=== PATIENT | male | born 1975 | race Two or more races ===

== ENCOUNTER 2017-12-15 09:57 | Outpatient (CLI) | payer OTHER ==
[2017-12-15 10:29] LABS: BASOPHILS # (AUTO) 0.3 K/uL (0.00-0.22); BASOPHILS % (AUTO) 4.4 % (0.0-2.0); EOSINOPHILS # (AUTO) 0.2 K/uL (0-0.4); EOSINOPHILS % (AUTO) 2.5 % (0.0-4.0); HEMATOCRIT 46.1 % (36-52); HEMOGLOBIN 15.4 g/dL (12.0-18.0); LYMPHOCYTES # (AUTO) 2.7 K/uL (2.0-11.5); LYMPHOCYTES % (AUTO) 38.4 % (20.5-51.1); MEAN CORPUSCULAR HEMOGLOBIN 28 pg (27-31); MEAN CORPUSCULAR HGB CONC 33 g/dL (33-37); MEAN CORPUSCULAR VOLUME 84 fL (80-94); MONOCYTES # (AUTO) 0.5 K/uL (0.8-1.0); MONOCYTES % (AUTO) 7.6 % (1.7-9.3); NEUTROPHILS # (AUTO) 3.4 K/uL (1.8-7.7); NEUTROPHILS % (AUTO) 47.1 % (42.2-75.2); PLATELET COUNT (AUTO) 340 K/uL (140-450); RED BLOOD CELL COUNT(AUTO) 5.49 MIL/uL (4.20-6.10); RED CELL DISTRIBUTION WIDTH 11.8 % (11.6-13.7); WHITE BLOOD COUNT (AUTO) 7.1 K/uL (4.8-10.8)
[2017-12-15 11:11] LABS: ALBUMIN 3.8 g/dL (3.4-5.0); ANION GAP 12.1 (8-16); CARBON DIOXIDE 29.3 mmol/L (21-32); POTASSIUM 4.4 mmol/L (3.5-5.1); THYROID STIMULATING HORMONE 1.31 uIU/mL (0.34-3.74); TOTAL BILIRUBIN 0.6 mg/dL (0.0-1.0)
== END 2017-12-15 20:34 | disposition home or self-care (01) ==
LOC: MLB 09:57
DX: Z00.01 Encounter for general adult medical examination with abnormal findings (principal); R53.83 Other fatigue
CPT/HCPCS: 36415; 80053; 83036; 84402; 84403; 84443; 85025

== ENCOUNTER 2018-05-02 09:13 | Outpatient (CLI) | payer OTHER ==
[2018-05-02 10:06] LABS: ANION GAP 10.8 (8-16); CARBON DIOXIDE 29.5 mmol/L (21-32); POTASSIUM 4.3 mmol/L (3.5-5.1)
[2018-05-03 15:07] LABS: MICROALBUMIN, UR RANDOM <3.0 ug/mL (Not Estab.)
== END 2018-05-02 21:05 | disposition home or self-care (01) ==
LOC: MLB 09:13
DX: E11.9 Type 2 diabetes mellitus without complications (principal)
CPT/HCPCS: 36415; 80048; 82043; 83036

== ENCOUNTER 2018-12-13 10:31 | Outpatient (CLI) | payer OTHER ==
[2018-12-13 10:48] LABS: BASOPHILS % (AUTO) 0.4 % (0.0-2.0); EOSINOPHILS # (AUTO) 0.1 K/uL (0-0.4); EOSINOPHILS % (AUTO) 1.5 % (0.0-4.0); HEMATOCRIT 45.1 % (36-52); HEMOGLOBIN 15.1 g/dL (12.0-18.0); LYMPHOCYTES # (AUTO) 3.1 K/uL (2.0-11.5); LYMPHOCYTES % (AUTO) 41.2 % (20.5-51.1); MEAN CORPUSCULAR HEMOGLOBIN 28 pg (27-31); MEAN CORPUSCULAR HGB CONC 34 g/dL (33-37); MEAN CORPUSCULAR VOLUME 83.5 fL (80-94); MONOCYTES # (AUTO) 0.5 K/uL (0.8-1.0); MONOCYTES % (AUTO) 6.9 % (1.7-9.3); NEUTROPHILS # (AUTO) 3.7 K/uL (1.8-7.7); PLATELET COUNT (AUTO) 313 K/uL (140-450); WHITE BLOOD COUNT (AUTO) 7.4 K/uL (4.8-10.8)
[2018-12-13 10:55] LABS: CARBON DIOXIDE 30.4 mmol/L (21-32); POTASSIUM 4.4 mmol/L (3.5-5.1)
[2018-12-13 11:09] LABS: ALBUMIN 3.8 g/dL (3.4-5.0); CHOL/HDL RATIO 3.9 (1-4.5); THYROID STIMULATING HORMONE 1.27 uIU/mL (0.34-3.74)
[2018-12-14 09:06] LABS: MICROALBUMIN, UR RANDOM <3.0 ug/mL (Not Estab.)
== END 2018-12-13 21:29 | disposition home or self-care (01) ==
LOC: MLB 10:31
DX: Z00.00 Encounter for general adult medical examination without abnormal findings (principal); E78.5 Hyperlipidemia, unspecified; E11.9 Type 2 diabetes mellitus without complications; M62.81 Muscle weakness (generalized)
CPT/HCPCS: 36415; 80053; 82043; 83036; 84402; 84403; 84443; 85025

== ENCOUNTER 2019-05-23 09:37 | Outpatient (CLI) | payer OTHER ==
[2019-05-23 11:03] LABS: BASOPHILS % (AUTO) 0.4 % (0.0-2.0); EOSINOPHILS # (AUTO) 0.1 K/uL (0-0.4); EOSINOPHILS % (AUTO) 1.8 % (0.0-4.0); HEMATOCRIT 45.2 % (36-52); HEMOGLOBIN 15.5 g/dL (12.0-18.0); LYMPHOCYTES # (AUTO) 3.1 K/uL (2.0-11.5); LYMPHOCYTES % (AUTO) 38.8 % (20.5-51.1); MEAN CORPUSCULAR HEMOGLOBIN 29 pg (27-31); MEAN CORPUSCULAR HGB CONC 34 g/dL (33-37); MEAN CORPUSCULAR VOLUME 84.1 fL (80-94); MONOCYTES # (AUTO) 0.6 K/uL (0.8-1.0); MONOCYTES % (AUTO) 7.7 % (1.7-9.3); NEUTROPHILS # (AUTO) 4.2 K/uL (1.8-7.7); NEUTROPHILS % (AUTO) 51.3 % (42.2-75.2); PLATELET COUNT (AUTO) 336 K/uL (140-450); RED BLOOD CELL COUNT(AUTO) 5.38 MIL/uL (4.20-6.10); RED CELL DISTRIBUTION WIDTH 13.5 % (11.6-13.7); WHITE BLOOD COUNT (AUTO) 8.1 K/uL (4.8-10.8)
[2019-05-23 11:14] LABS: APPEARANCE,URINE CLEAR (CLEAR); BILIRUBIN,URINE NEGATIVE (NEGATIVE); BLOOD, URINE TRACE-I (NEGATIVE); COLOR,URINE YELLOW (YELLOW); LEUKOCYTE ESTERASE ,URINE TRACE (NEGATIVE); NITRITE, URINE NEGATIVE (NEGATIVE); UGLUCOSE 3+ (NEGATIVE)
[2019-05-23 11:35] LABS: RBC,URINE 0-5 /HPF (0-5)
[2019-05-23 12:00] LABS: ALBUMIN 4.1 g/dL (3.4-5.0); ANION GAP 14.7 (8-16); CARBON DIOXIDE 26.4 mmol/L (21-32); CHOL/HDL RATIO 3.7 (1-4.5); CREATININE 0.9 mg/dL (0.7-1.3); POTASSIUM 4.1 mmol/L (3.5-5.1); THYROID STIMULATING HORMONE 1.39 uIU/mL (0.34-3.74); TOTAL BILIRUBIN 1.2 mg/dL (0.0-1.0)
[2019-05-24 09:11] LABS: MICROALBUMIN, UR RANDOM <3.0 ug/mL (Not Estab.); T4 FREE (DIRECT) 1.12 ng/dL (0.82-1.77)
== END 2019-05-23 22:20 | disposition home or self-care (01) ==
LOC: MLB 09:37
DX: E11.9 Type 2 diabetes mellitus without complications (principal)
CPT/HCPCS: 36415; 80053; 81001; 82043; 83036; 84402; 84403; 84439; 84443; 85025; 87086

== ENCOUNTER 2019-09-14 08:41 | Outpatient (CLI) | payer OTHER ==
[2019-09-14 09:14] LABS: BASOPHILS % (AUTO) 0.3 % (0.0-2.0); EOSINOPHILS # (AUTO) 0.1 K/uL (0-0.4); EOSINOPHILS % (AUTO) 1.6 % (0.0-4.0); HEMOGLOBIN 14.5 g/dL (12.0-18.0); LYMPHOCYTES # (AUTO) 2.9 K/uL (2.0-11.5); LYMPHOCYTES % (AUTO) 37.8 % (20.5-51.1); MEAN CORPUSCULAR HEMOGLOBIN 29 pg (27-31); MEAN CORPUSCULAR HGB CONC 34 g/dL (33-37); MEAN CORPUSCULAR VOLUME 85.7 fL (80-94); MONOCYTES # (AUTO) 0.5 K/uL (0.8-1.0); MONOCYTES % (AUTO) 6.1 % (1.7-9.3); NEUTROPHILS # (AUTO) 4.2 K/uL (1.8-7.7); NEUTROPHILS % (AUTO) 54.2 % (42.2-75.2); PLATELET COUNT (AUTO) 342 K/uL (140-450); RED BLOOD CELL COUNT(AUTO) 5.02 MIL/uL (4.20-6.10); RED CELL DISTRIBUTION WIDTH 13.1 % (11.6-13.7); WHITE BLOOD COUNT (AUTO) 7.8 K/uL (4.8-10.8)
[2019-09-14 09:36] LABS: ALBUMIN 3.7 g/dL (3.4-5.0); ANION GAP 11.9 (8-16); CARBON DIOXIDE 28.3 mmol/L (21-32); CHOL/HDL RATIO 3.3 (1-4.5); CREATININE 0.8 mg/dL (0.7-1.3); POTASSIUM 4.2 mmol/L (3.5-5.1); THYROID STIMULATING HORMONE 1.23 uIU/mL (0.34-3.74)
== END 2019-09-14 20:21 | disposition home or self-care (01) ==
LOC: MLB 08:41
DX: E11.9 Type 2 diabetes mellitus without complications (principal); I10 Essential (primary) hypertension; E78.5 Hyperlipidemia, unspecified
CPT/HCPCS: 36415; 80053; 83036; 84403; 84443; 85025

== ENCOUNTER 2020-03-29 15:02 | Outpatient (CLI) | payer OTHER, SELFPAY | END 2020-03-29 21:28 | disposition home or self-care (01) | LOC: MLB 15:02 | DX: R53.83 Other fatigue (principal); R50.9 Fever, unspecified; R53.1 Weakness | CPT/HCPCS: 36415 ==

== ENCOUNTER 2020-07-21 08:38 | Outpatient (CLI) | payer OTHER ==
[2020-07-21 11:51] LABS: ALBUMIN 3.8 g/dL (3.4-5.0); ANION GAP 11.8 (8-16); CARBON DIOXIDE 27.4 mmol/L (21-32); CHOL/HDL RATIO 4.3 (1-4.5); CREATININE 0.8 mg/dL (0.6-1.3); FREE T4 (FREE THYROXINE) 0.84 ng/dL (0.76-1.46); POTASSIUM 4.2 mmol/L (3.5-5.1); THYROID STIMULATING HORMONE 1.39 uIU/mL (0.34-3.74); TOTAL BILIRUBIN 0.6 mg/dL (0.0-1.0)
== END 2020-07-21 22:29 | disposition home or self-care (01) ==
LOC: MLB 08:38
DX: R53.83 Other fatigue (principal); E78.2 Mixed hyperlipidemia; E11.9 Type 2 diabetes mellitus without complications; R63.5 Abnormal weight gain
CPT/HCPCS: 36415; 80053; 82306; 83036; 84402; 84403; 84439; 84443

== ENCOUNTER 2020-08-19 08:19 | Outpatient (CLI) | payer OTHER ==
[2020-08-19 09:37] LABS: APPEARANCE,URINE CLEAR (CLEAR); BILIRUBIN,URINE NEGATIVE (NEGATIVE); BLOOD, URINE TRACE-I (NEGATIVE); COLOR,URINE YELLOW (YELLOW); LEUKOCYTE ESTERASE ,URINE NEGATIVE (NEGATIVE); NITRITE, URINE NEGATIVE (NEGATIVE); UGLUCOSE NEGATIVE (NEGATIVE)
[2020-08-19 09:53] LABS: RBC,URINE 0-5 /HPF (0-5); WBC,URINE 0-5 /HPF (0-5)
[2020-08-20 09:24] LABS: PROSTATE SPEC AG TOTAL 0.3 ng/mL (0.0-4.0)
== END 2020-08-19 20:21 | disposition home or self-care (01) ==
LOC: MLB 08:19
DX: E78.5 Hyperlipidemia, unspecified (principal); I10 Essential (primary) hypertension
CPT/HCPCS: 36415; 81001; 82550; 84153; 86140

== ENCOUNTER 2021-02-17 08:39 | Outpatient (CLI) | payer OTHER ==
[2021-02-17 09:34] LABS: BASOPHILS % (AUTO) 0.4 % (0.0-2.0); EOSINOPHILS # (AUTO) 0.1 K/uL (0-0.4); EOSINOPHILS % (AUTO) 1.4 % (0.0-4.0); HEMATOCRIT 46.8 % (36-52); HEMOGLOBIN 15.9 g/dL (12.0-18.0); LYMPHOCYTES # (AUTO) 2.7 K/uL (2.0-11.5); LYMPHOCYTES % (AUTO) 37.5 % (20.5-51.1); MEAN CORPUSCULAR HEMOGLOBIN 29 pg (27-31); MEAN CORPUSCULAR HGB CONC 34 g/dL (33-37); MEAN CORPUSCULAR VOLUME 84.2 fL (80-94); MONOCYTES # (AUTO) 0.5 K/uL (0.8-1.0); MONOCYTES % (AUTO) 7.7 % (1.7-9.3); NEUTROPHILS # (AUTO) 3.8 K/uL (1.8-7.7); PLATELET COUNT (AUTO) 334 K/uL (140-450); RED BLOOD CELL COUNT(AUTO) 5.56 MIL/uL (4.20-6.10); RED CELL DISTRIBUTION WIDTH 13.2 % (11.6-13.7); WHITE BLOOD COUNT (AUTO) 7.1 K/uL (4.8-10.8)
[2021-02-17 09:39] LABS: ALBUMIN 3.9 g/dL (3.4-5.0); ANION GAP 11.9 (8-16); CARBON DIOXIDE 27.3 mmol/L (21-32); CHOL/HDL RATIO 3.8 (1-4.5); POTASSIUM 4.2 mmol/L (3.5-5.1); TOTAL BILIRUBIN 1.1 mg/dL (0.0-1.0)
== END 2021-02-17 19:31 | disposition home or self-care (01) ==
LOC: MLB 08:39
DX: E78.5 Hyperlipidemia, unspecified (principal); E11.9 Type 2 diabetes mellitus without complications
CPT/HCPCS: 36415; 80053; 83036; 84402; 84403; 85025

== ENCOUNTER 2021-08-25 09:50 | Outpatient (CLI) | payer OTHER ==
[2021-08-25 10:28] LABS: BASOPHILS % (AUTO) 0.4 % (0.0-2.0); EOSINOPHILS # (AUTO) 0.1 K/uL (0-0.4); EOSINOPHILS % (AUTO) 1.3 % (0.0-4.0); HEMATOCRIT 47.7 % (36-52); HEMOGLOBIN 16.2 g/dL (12.0-18.0); LYMPHOCYTES # (AUTO) 2.8 K/uL (2.0-11.5); LYMPHOCYTES % (AUTO) 37.3 % (20.5-51.1); MEAN CORPUSCULAR HEMOGLOBIN 29 pg (27-31); MEAN CORPUSCULAR HGB CONC 34 g/dL (33-37); MEAN CORPUSCULAR VOLUME 84.8 fL (80-94); MONOCYTES # (AUTO) 0.5 K/uL (0.8-1.0); MONOCYTES % (AUTO) 6.1 % (1.7-9.3); NEUTROPHILS # (AUTO) 4.1 K/uL (1.8-7.7); NEUTROPHILS % (AUTO) 54.9 % (42.2-75.2); PLATELET COUNT (AUTO) 339 K/uL (140-450); RED BLOOD CELL COUNT(AUTO) 5.62 MIL/uL (4.20-6.10); RED CELL DISTRIBUTION WIDTH 13.6 % (11.6-13.7); WHITE BLOOD COUNT (AUTO) 7.5 K/uL (4.8-10.8)
[2021-08-25 10:59] LABS: ALBUMIN 3.9 g/dL (3.4-5.0); ANION GAP 12.4 (8-16); CARBON DIOXIDE 28.3 mmol/L (21-32); POTASSIUM 4.7 mmol/L (3.5-5.1); TOTAL BILIRUBIN 0.8 mg/dL (0.0-1.0)
[2021-08-26 09:06] LABS: PROSTATE SPEC AG TOTAL 0.3 ng/mL (0.0-4.0)
== END 2021-08-25 20:39 | disposition home or self-care (01) ==
LOC: MLB 09:50
PROVIDERS: ATTEND Internal Medicine
DX: E11.9 Type 2 diabetes mellitus without complications (principal); I10 Essential (primary) hypertension; E29.1 Testicular hypofunction
CPT/HCPCS: 36415; 80053; 83036; 84153; 84402; 84403; 85025

== ENCOUNTER 2022-06-24 16:43 | Emergency (ER) | payer OTHER ==
[~2022-06-24] VITALS: Ht 180.3 cm; Wt 107.5 kg
[2022-06-24 16:49] VITALS: BP 167/99
--- NOTE | 2022-06-24 16:54 | NUR ---
PATIENT AMBULATED TO BED 11
--- NOTE | 2022-06-24 16:57 | NUR ---
46/M PRESENTS TO ED WITH C/O BACK PAIN AND CHEST PAIN SINCE SATURDAY, STATES TODAY BP AT HOME WAS 165/95. REPORTS HX OF HTN AND STATES HE IS COMPLIANT WITH HIS MEDICATION BUT REPORTS HE HAS BEEN FEELING INCREASINGLY MORE WEAK AND TIRED THE LAST FEW DAYS. PATIENT REPORTS RECENT DOMESTIC TRAVEL, STATES HE RETURNED FROM [place] ON SATURDAY NIGHT, DENIES RECENT INTERNATIONAL TRAVEL. PATIENT DENIES COUGH, FEVERS, SOB OR RECENT SICK CONTACTS.
[2022-06-24] MEDS ORDERED: MORPHINE SULFATE 2 MG/ML SYR IVP STA (16:59)
[2022-06-24] MEDS ORDERED: LIDOCAINE 5% 1 EA PATCH TP STA (16:59)
[2022-06-24] MEDS ORDERED: lisinopriL 20 MG TAB PO ONE (17:05)
[2022-06-24 17:19] LABS: BASOPHILS % (AUTO) 0.2 % (0.0-2.0); EOSINOPHILS # (AUTO) 0.1 K/uL (0-0.4); EOSINOPHILS % (AUTO) 0.6 % (0.0-4.0); HEMATOCRIT 48.4 % (36-52); HEMOGLOBIN 16.4 g/dL (12.0-18.0); LYMPHOCYTES % (AUTO) 25.5 % (20.5-51.1); MEAN CORPUSCULAR HEMOGLOBIN 28 pg (27-31); MEAN CORPUSCULAR HGB CONC 34 g/dL (33-37); MONOCYTES # (AUTO) 0.9 K/uL (0.8-1.0); MONOCYTES % (AUTO) 7.9 % (1.7-9.3); NEUTROPHILS # (AUTO) 7.7 K/uL (1.8-7.7); NEUTROPHILS % (AUTO) 65.8 % (42.2-75.2); PLATELET COUNT (AUTO) 349 K/uL (140-450); RED BLOOD CELL COUNT(AUTO) 5.76 MIL/uL (4.20-6.10); RED CELL DISTRIBUTION WIDTH 13.5 % (11.6-13.7); WHITE BLOOD COUNT (AUTO) 11.7 K/uL (4.8-10.8)
[2022-06-24 17:40] LABS: ANION GAP 14.3 (8-16); ASPARTATE AMINOTRANSFERASE 18 U/L (15-37); CARBON DIOXIDE 26.7 mmol/L (21-32); CHLORIDE 101 mmol/L (98-107); GFR ARICAN-AMERICAN 103 mL/min (>90); GLUCOSE 174 mg/dL (74-106); SODIUM SERUM 138 mmol/L (136-145); UREA NITROGEN, BLOOD 13 mg/dL (7-18)
--- NOTE | 2022-06-24 17:45 | NUR ---
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 ALL NEEDS MET AT THIS TIME.
[2022-06-24] MEDS ORDERED: NITROGLYCERIN 0.4 MG TAB SL STA (17:58)
--- NOTE | 2022-06-24 18:22 | NUR ---
PATIENT MOVED TO BED 1
[2022-06-24] MEDS ORDERED: CYCLOBENZAPRINE 10 MG TAB PO ONE (18:25)
[2022-06-24] MEDS ORDERED: CRUSHER, PILL MC ONE (18:30)
--- NOTE | 2022-06-24 18:45 | NUR ---
GLENROY SWAB COLLECTED AND WALKED TO LAB
--- NOTE | 2022-06-24 19:17 | NUR ---
Pt report given to SEFERINO MAJANO. Transfer of care at this time.
--- NOTE | 2022-06-24 19:23 | NUR ---
RESTING IN BED WITH EYES OPEN. PT STATES HE IS FEELING BETTER BUT BACK DISCOMFORT REMAINS BUT IS LESS. CM = SR WITHOUT ECTOPY.
--- NOTE | 2022-06-24 22:05 | NUR ---
RETURNED FROM CT
[2022-06-25] MEDS ORDERED: MORPHINE SULFATE 2 MG/ML SYR IVP ONE (00:35)
[2022-06-25] MEDS ORDERED: ONDANSETRON 4 MG/2 ML VIAL IVP ONE (00:35)
--- NOTE | 2022-06-25 00:40 | NUR ---
C/O PAIN RATED 3/10. MEDICATED ORDERED
[2022-06-25 01:15] VITALS: BP 139/90
--- NOTE | 2022-06-25 01:15 | NUR ---
Patient discharged with v/s stable. Written and verbal after care instructions given and explained. Patient verbalized understanding. Ambulatory with steady gait. All questions addressed prior to discharge. Advised to follow up with PMD.
== END 2022-06-25 01:15 | disposition home or self-care (01) ==
LOC: MED 16:43
DX: M62.830 Muscle spasm of back (principal); Z20.822 Contact with and (suspected) exposure to COVID-19; R07.9 Chest pain, unspecified; I10 Essential (primary) hypertension; E11.9 Type 2 diabetes mellitus without complications; Z79.4 Long term (current) use of insulin; Z79.899 Other long term (current) drug therapy
CPT/HCPCS: 36415; 71045; 71275; 80053; 84484; 85025; 85379; 87426; 93005; 96374; 96375; 96376; 99285; J2270; J2405; Q9967

== ENCOUNTER 2022-09-25 06:29 | Outpatient (CLI) | payer OTHER ==
[2022-09-25 09:01] LABS: APPEARANCE,URINE CLEAR (CLEAR); BILIRUBIN,URINE NEGATIVE (NEGATIVE); BLOOD, URINE NEGATIVE (NEGATIVE); COLOR,URINE YELLOW (YELLOW); LEUKOCYTE ESTERASE ,URINE NEGATIVE (NEGATIVE); NITRITE, URINE NEGATIVE (NEGATIVE); UGLUCOSE 3+ (NEGATIVE)
[2022-09-25 09:17] LABS: ANION GAP 12.1 (8-16); BASOPHILS % (AUTO) 0.6 % (0.0-2.0); CARBON DIOXIDE 30.6 mmol/L (21-32); EOSINOPHILS # (AUTO) 0.1 K/uL (0-0.4); EOSINOPHILS % (AUTO) 1.4 % (0.0-4.0); HEMATOCRIT 49.2 % (36-52); HEMOGLOBIN 16.6 g/dL (12.0-18.0); LYMPHOCYTES # (AUTO) 2.9 K/uL (2.0-11.5); LYMPHOCYTES % (AUTO) 34.7 % (20.5-51.1); MEAN CORPUSCULAR HEMOGLOBIN 29 pg (27-31); MEAN CORPUSCULAR HGB CONC 34 g/dL (33-37); MEAN CORPUSCULAR VOLUME 84.5 fL (80-94); MONOCYTES # (AUTO) 0.5 K/uL (0.8-1.0); MONOCYTES % (AUTO) 6.3 % (1.7-9.3); NEUTROPHILS # (AUTO) 4.7 K/uL (1.8-7.7); PLATELET COUNT (AUTO) 321 K/uL (140-450); POTASSIUM 4.7 mmol/L (3.5-5.1); RED BLOOD CELL COUNT(AUTO) 5.82 MIL/uL (4.20-6.10); WHITE BLOOD COUNT (AUTO) 8.3 K/uL (4.8-10.8)
[2022-09-25 09:53] LABS: PROTHROMBIN TIME 10.1 secs (10.8-13.4)
== END 2022-09-25 20:01 | disposition home or self-care (01) ==
LOC: EEVIPCON → MLB 06:29
PROVIDERS: ATTEND Internal Medicine
DX: Z01.818 Encounter for other preprocedural examination (principal)
CPT/HCPCS: 36415; 80048; 81003; 83036; 85025; 85610; 85730; 93005

== ENCOUNTER → 2023-03-29 | Outpatient (CLI) | payer OTHER ==
[2023-03-29 09:35] LABS: BASOPHILS % (AUTO) 0.3 % (0.0-2.0); EOSINOPHILS # (AUTO) 0.1 K/uL (0-0.4); EOSINOPHILS % (AUTO) 0.9 % (0.0-4.0); HEMATOCRIT 45.8 % (36-52); HEMOGLOBIN 15.6 g/dL (12.0-18.0); LYMPHOCYTES % (AUTO) 35.6 % (20.5-51.1); MEAN CORPUSCULAR HEMOGLOBIN 29 pg (27-31); MEAN CORPUSCULAR HGB CONC 34 g/dL (33-37); MEAN CORPUSCULAR VOLUME 84.3 fL (80-94); MONOCYTES # (AUTO) 0.6 K/uL (0.8-1.0); MONOCYTES % (AUTO) 7.2 % (1.7-9.3); NEUTROPHILS # (AUTO) 4.7 K/uL (1.8-7.7); PLATELET COUNT (AUTO) 324 K/uL (140-450); RED BLOOD CELL COUNT(AUTO) 5.43 MIL/uL (4.20-6.10); RED CELL DISTRIBUTION WIDTH 13.4 % (11.6-13.7); WHITE BLOOD COUNT (AUTO) 8.4 K/uL (4.8-10.8)
[2023-03-29 10:11] LABS: ALBUMIN 3.8 g/dL (3.4-5.0); ANION GAP 10.5 (8-16); CARBON DIOXIDE 28.7 mmol/L (21-32); CHOL/HDL RATIO 3.7 (1-4.5); CREATININE 0.9 mg/dL (0.6-1.3); POTASSIUM 4.2 mmol/L (3.5-5.1); TOTAL BILIRUBIN 0.9 mg/dL (0.0-1.0)
[2023-03-30 15:07] LABS: MICROALBUMIN, UR RANDOM <3.0 ug/mL (Not Estab.)
== END | disposition home or self-care (01) ==
LOC: MLB 08:27
PROVIDERS: ATTEND Internal Medicine
DX: I10 Essential (primary) hypertension (principal); E78.5 Hyperlipidemia, unspecified; E11.9 Type 2 diabetes mellitus without complications
CPT/HCPCS: 36415; 80053; 82043; 83036; 84402; 84403; 85025

== ENCOUNTER → 2023-10-12 | Outpatient (CLI) | payer OTHER ==
[2023-10-12 10:19] LABS: ALBUMIN 3.7 g/dL (3.4-5.0); ANION GAP 11.6 (8-16); CALCIUM 8.4 mg/dL (8.5-10.1); CARBON DIOXIDE 28.7 mmol/L (21-32); CHOL/HDL RATIO 5.7 (1-4.5); CREATININE 0.8 mg/dL (0.6-1.3); POTASSIUM 4.3 mmol/L (3.5-5.1); TOTAL BILIRUBIN 0.7 mg/dL (0.0-1.0); TOTAL PROTEIN, SERUM 7.2 g/dL (6.4-8.2)
[2023-10-12 10:32] LABS: BASOPHILS % (AUTO) 0.4 % (0.0-2.0); EOSINOPHILS # (AUTO) 0.2 K/uL (0-0.4); HEMATOCRIT 44.1 % (36-52); HEMOGLOBIN 14.9 g/dL (12.0-18.0); LYMPHOCYTES # (AUTO) 2.9 K/uL (2.0-11.5); LYMPHOCYTES % (AUTO) 38.5 % (20.5-51.1); MEAN CORPUSCULAR HEMOGLOBIN 29 pg (27-31); MEAN CORPUSCULAR HGB CONC 34 g/dL (33-37); MEAN CORPUSCULAR VOLUME 84.3 fL (80-94); MONOCYTES # (AUTO) 0.6 K/uL (0.8-1.0); MONOCYTES % (AUTO) 8.5 % (1.7-9.3); NEUTROPHILS # (AUTO) 3.9 K/uL (1.8-7.7); NEUTROPHILS % (AUTO) 50.6 % (42.2-75.2); PLATELET COUNT (AUTO) 339 K/uL (140-450); RED BLOOD CELL COUNT(AUTO) 5.24 MIL/uL (4.20-6.10); WHITE BLOOD COUNT (AUTO) 7.6 K/uL (4.8-10.8)
[2023-10-14 19:37] LABS: VITAMIN D, 25-HYDROXY 14.6 ng/mL (30.0-100.0)
== END | disposition home or self-care (01) ==
LOC: MLB 09:06
PROVIDERS: ATTEND Internal Medicine
DX: I10 Essential (primary) hypertension (principal); E78.5 Hyperlipidemia, unspecified; E11.65 Type 2 diabetes mellitus with hyperglycemia
CPT/HCPCS: 36415; 80053; 82306; 83036; 84443; 85025